=== PATIENT | male | born 1980 | race Hispanic/Latino ===

== ENCOUNTER 2020-07-23 12:05 | Emergency (ER) | payer OTHER ==
[2020-07-23] MEDS ORDERED: CEFTRIAXONE SODIUM 1 GM ONE (13:14)
[2020-07-23] MEDS ORDERED: HYDROCODONE/ACETAMINOPHEN 5/325 MG TAB ONE (13:14)
[2020-07-23] MEDS ORDERED: KETOROLAC TROMETHAMINE 30MG/ML ONE (13:14)
[2020-07-23] MEDS ORDERED: LIDOCAINE HCL-MPF 1% 2ML VIAL ONE (13:14)
== END 2020-07-23 13:29 | disposition home or self-care (01) ==
LOC: EDH 12:05
DX: L03.114 Cellulitis of left upper limb (principal); Z85.47 Personal history of malignant neoplasm of testis; Z72.0 Tobacco use
CPT/HCPCS: 73080; 96372 ×2; 99284; J0696; J1885; J3490